=== PATIENT | female | born 1935 | race Caucasian/White ===

== ENCOUNTER 2023-06-08 08:03 | Day surgery (SDC) | payer OTHER ==
[2023-06-03 12:02] VITALS: BMI 22.3
[2023-06-08] MEDS ORDERED: NEO/POLYMYX B SULF/DEXAMETH OPHTHALMIC 5ML BOTTLE ONE (08:13)
[2023-06-08] MEDS ORDERED: BSS (NA/CA/MG/K) BALANCED SALT SOLUTION OPHTH SOLN 15 ML BOTTLE ONE (08:13)
[2023-06-08] MEDS ORDERED: LIDOCAINE 1% P/F 10 MG/ML VIAL ONE (08:13)
[2023-06-08] MEDS ORDERED: TETRACAINE 0.5% OPHTH SOLN 2 ML BOTTLE ONE (08:13)
[2023-06-08] MEDS ORDERED: CARBACHOL 0.01% INTRA-OCULAR 1.5 ML VIAL ONE (08:13)
[2023-06-08 08:19] VITALS: RESP 18
[2023-06-08] MEDS: TROPICAMIDE 1% OPHTH SOLN 15 ML BOTTLE ONE (08:45)
[2023-06-08] MEDS: PHENYLEPHRINE 2.5% OPTHALMIC DROP 2ML BOTTLE ONE (08:45)
[2023-06-08] MEDS: CYCLOPENTOLATE 2% OPHTH SOLN 2 ML BOTTLE ONE (08:45)
[2023-06-08] MEDS: CIPROFLOXACIN 0.3% EYE DROPS 5 ML BOTTLE ONE (08:45)
[2023-06-08] MEDS ORDERED: MIDAZOLAM HCL 2 MG/2 ML SINGLE DOSE VIAL ONE (09:34)
[2023-06-08] MEDS ORDERED: KETOROLAC TROMETHAMINE 30 MG/1 ML VIAL ONE (09:36)
[2023-06-08 10:18] VITALS: TEMP 97.9
[2023-06-08] MEDS ORDERED: ACETAMINOPHEN 325 MG TABLET (FP) ONE (10:34)
[2023-06-08 10:43] VITALS: BP 159/82; PULSE 62
== END 2023-06-08 10:30 | disposition home or self-care (01) ==
LOC: FASU 08:03
PROVIDERS: ATTEND Ophthalmology
PROC: 08RK3JZ Replacement of Left Lens with Synthetic Substitute, Percutaneous Approach (ICD-10-PCS; principal; 2023-06-08 09:41)
DX: H26.8 Other specified cataract (principal)
CPT/HCPCS: 66984; V2632